=== PATIENT | male | born 1980 | race Caucasian/White ===

== ENCOUNTER 2022-04-01 12:22 | Emergency (ER) | payer BC, SELFPAY ==
[2022-04-01 12:30] VITALS: BP 139/93; PULSE 90; RESP 16; TEMP 36.3; O2SAT 95; BMI 25.1
--- NOTE | 2022-04-01 12:53 | ED.GENADULT ---
HPI - General Adult General Time Seen by Provider: 12:54 Date Seen: 04/01/22 Chief complaint: Skin/Abscess/Foreign Body Stated complaint: Abscess on back of neck Time Seen by Provider: 04/01/22 12:23 Source: patient Mode of arrival: ambulatory Limitations: no limitations History of Present Illness HPI narrative: Flip tsang 41 year white male who has got an abscess on his back of his neck. He has had this in the past, he has been on Septra over the last few days, does not seem to getting a lot better. No fevers chills or rigors. He presents to ED for treatment. Related Data Home Medications Medication Instructions Recorded Confirmed No Known Home Medications 03/27/22 03/27/22 Previous Rx's Medication Instructions Recorded sulfamethoxazole 800 1 tab PO BID 7 days #14 tabs 03/27/22 mg-trimethoprim 160 mg tablet (Bactrim DS) Allergies Allergy/AdvReac Type Severity Reaction Status Date / Time No Known Drug Allergies Allergy Verified 03/27/22 12:26 Review of Systems Status of ROS: Reports: 6 or more systems reviewed and unremarkable except as noted in History and below PFSH PFS Social History Smoking Status: Never smoker Do you use any of these nicotine containing products: None Second hand tobacco smoke exposure: No How often do you have a drink containing alcohol: never How often do you have six or more drinks on one occasion: Never AUDIT-C Alcohol total score: 0 Non-prescribed substance use: denies use service: No Exam Narrative: Exam Narrative: Objective: Patient's vital signs unremarkable He has got a small quarter-sized fluctuant reddened area the room is raised from the back of his neck consistent with a abscess no spreading cellulitic change Procedure: After sterile scrub 1% xylocaine with epinephrine used for anesthesia a cruciate incision was made with good amount of purulence expressed. A forceps was used to open the wound and there was no additional purulence noted there was some firmness around the open wound. Const: Vital Signs, click to edit/add: Vital Signs - 24 hr 04/01/22 12:30 Temperature 97.4 F L Pulse Rate [Left P ulse Oximeter] 90 Respiratory Rate 16 Blood Pressure [Le ft Upper Arm] 139/93 H Pulse Oximetry 95 Oxygen Delivery Me thod Room Air Course Vital Signs Vital signs: Initial Vital Signs Temperature 97.4 F L 04/01/22 12:30 Temperature Source Temporal Artery Scan 04/01/22 12:30 Pulse Rate 90 04/01/22 12:30 Pulse Rhythm 04/01/22 12:30 Pulse Strength 3+ Normal 04/01/22 12:30 Respiratory Rate 16 04/01/22 12:30 Blood Pressure 139/93 H 04/01/22 12:30 Blood Pressure Mean 108 04/01/22 12:30 Blood Pressure Position Sitting 04/01/22 12:30 Pulse Oximetry 95 04/01/22 12:30 Oxygen Delivery Method 04/01/22 12:30 Vital Signs Temperature 97.4 F L 04/01/22 12:30 Pulse Rate 90 04/01/22 12:30 Respiratory Rate 16 04/01/22 12:30 Blood Pressure 139/93 H 04/01/22 12:30 Pulse Oximetry 95 04/01/22 12:30 Oxygen Delivery Method 04/01/22 12:30 Temperature 97.4 F L 04/01/22 12:30 Pulse Rate 90 04/01/22 12:30 Respiratory Rate 16 04/01/22 12:30 Blood Pressure 139/93 H 04/01/22 12:30 Pulse Oximetry 95 04/01/22 12:30 Oxygen Delivery Method 04/01/22 12:30 Medical Decision Making [facility] Narrative Medical decision making narrative: Patient has a abscess on his neck that was I indeed it was spread and opened, I left some gauze stuffed in the wound and will cover with Telfa and a bandage he can remove this tomorrow, continue antibiotics and finish that up. Allow to heal by secondary tension feel free to return if problems or concerns may simply cover with a bandage after the gauze is removed tomorrow Discharge Plan Discharge Clinical Impression: Abscess Patient Disposition: Home, Self-Care Condition: Improved Additional Instructions: Keep covered for 24 hours, then he may pull out the gauze and shower and bathe normally, finish the antibiotic, return to ER problems concerns difficulty. May take a few days before the wound closes. As mention return as needed or if continues to have symptoms. Activity Detail: Keep the wound area dry for 24 hours Discharge Diet: Regular Prescriptions: No Action No Known Home Medications sulfamethoxazole-trimethoprim [Bactrim DS] 800-160 mg tablet 1 tab PO BID 7 Days Qty: 14 0RF Follow Up/Referrals: Provider,Not a Local [Referring] - Stand Alone Forms: [facility] Info Instructions
--- NOTE | 2022-04-01 13:18 | ED.NURSE ---
TDAP given. Unable to document in JUL. Lot- [id number] E-02/08/2024
== END 2022-04-01 13:21 | disposition home or self-care (01) ==
LOC: ED 13:05
PROVIDERS: Emergency Provider Family Medicine; PCP Internal Medicine
DX: L02.11 Cutaneous abscess of neck (principal)
CPT/HCPCS: 10060; 99281; 99282; 99283

== ENCOUNTER 2022-04-18 10:20 | Outpatient (CLI) | payer BC, SELFPAY ==
[2022-04-18 10:34] LABS: Albumin* 4.2 g/dL (3.3-5.0); Chloride* 107 mmol/L (96-114); Potassium* 4.6 mmol/L (3.6-5.1); Sodium* 138 mmol/L (135-149)
[2022-04-18 10:36] LABS: Cholesterol* 185 mg/dL (90-199); Creatinine* 0.7 mg/dL (0.5-1.5); Estimated Glomerular Filt Rate 120 ml/min
[2022-04-18 10:37] LABS: Alanine Aminotransferase* 20 U/L (4-50); Alkaline Phosphatase* 46 U/L (40-150); Aspartate Amino Transferase* 26 U/L (12-35); Bilirubin Total* 1.5 mg/dL (0.1-1.5); Blood Urea Nitrogen* 12 mg/dL (5-24); Calcium* 9.3 mg/dL (8.4-10.6); Carbon Dioxide* 29 mmol/L (20-32); Glucose* 89 mg/dL (60-115); Total Protein* 6.2 g/dL (6.0-8.3); Triglycerides* 86 mg/dL (40-149)
[2022-04-18 10:38] LABS: HDL Cholesterol* 60 mg/dL (>=40); LDL Cholesterol Calculated 108 mg/dL (<100)
== END 2022-04-18 10:21 | disposition home or self-care (01) ==
PROVIDERS: PCP Internal Medicine; Visit Provider Internal Medicine
DX: Z13.6 Encounter for screening for cardiovascular disorders (principal)
CPT/HCPCS: 80053; 80061

== ENCOUNTER 2022-05-03 16:15 | Outpatient (CLI) | payer BC, SELFPAY | END 2022-05-03 16:16 | disposition home or self-care (01) | LOC: NFLDREF 16:16 | PROVIDERS: PCP Internal Medicine; Visit Provider Surgery | DX: L02.93 Carbuncle, unspecified (principal) | CPT/HCPCS: 87070; 87186 ==

== ENCOUNTER 2024-05-24 15:40 | Emergency (ER) | payer BC, SELFPAY ==
--- OUTSIDE RECORDS SUMMARY | 2024-05-24 15:43 | XMS_ITS | Clinical Summary ---
[facility] Organization [facility] Address [address] [place] [address] Care Team Providers Care Supervisor Laundry Name Role Phone No Primary/Referring, Phy Primary Care Provider Unavailable Source Comments You are receiving this document as you are listed as the primary care provider,follow-up provider, or the patient has been referred to you for consultation.This is in compliance with the Medicare and[facility] E[facility] Incentive [facility],which states Providers who transition their patient to another setting of careor provider of care or refers their patient to another provider of care shouldprovide summary care record for each transition of care or referral. [place] Allergies Active Allergy Reactions Criticality Noted Date Comments Nickel Rash 02/17/2015 Other Other, see comments 02/17/2015 Hay fever Medications Medication Sig Dispensed Refills Start Date End Date Status Cetirizine HCl (ZYRTEC OR) Reported on 06/29/2016 Active mometasone (NASONEX) 50 MCG/ACT nasal solution Place 2 Sprays into both nostrils daily as needed. Reported on 06/29/2016 Active Active Problems No known active problems Family History Medical History Relation Name Comments Cataract Father Cataract Maternal Grandfather Cataract Maternal Grandmother Cataract Paternal Grandmother Relation Name Status Comments Father Maternal Grandfather Maternal Grandmother Paternal Grandmother Social History Tobacco Use Types Packs/Day Years Used Date Smoking Tobacco: Never Alcohol Use Standard Drinks/Week Comments Yes 0 (1 standard drink = 0.6 oz pur e alcohol) Sex and Gender Information Value Date Recorded Sex Assigned at Not on file Gender Identity Not on file Sexual Orientation Not on file Plan of Treatment Health Maintenance Due Date Last Done Comments Hep C Screening (Preventive Services) 1982 HIV Screening (Preventive Services) 1998 Adult Preventive Visit 2000 DTaP/Tdap/Td (1 - Tdap) 2001 HepB (1) 2001 Cholesterol 2017 COVID-19 Vaccine (1 - 2023-2 5 season) 2024 Influenza (#1) 2024 Zoster/Shingles (1 of 2) 2032 HPV Vaccine Aged Out No longer eligi ble based on patient's age to complete this topic HepA Aged Out No longer eligi ble based on patient's age to complete this topic Hib Aged Out No longer eligi ble based on patient's age to complete this topic IPV (Polio) Aged Out No longer eligi ble based on patient's age to complete this topic MCV4 Aged Out No longer eligi ble based on patient's age to complete this topic Pneumococcal Aged Out No longer eligi ble based on patient's age to complete this topic Care Teams Supervisor Laundry Relationship Specialty Start Date End Date No Primary/Referring, Phy PCP - General 01/18/15
[2024-05-24 16:09] VITALS: BP 165/114; PULSE 73; RESP 16; TEMP 36.8; O2SAT 98; BMI 25.1
--- NOTE | 2024-05-24 17:13 | ED.SKABFB ---
HPI - Skin/Abscess/Foreign Bdy General Chief complaint: Skin/Abscess/Foreign Body Stated complaint: suspected staph infection Time Seen by Provider: 05/24/24 17:03 History of Present Illness HPI narrative: This 43-year-old male comes in with tenderness and swelling in his right eyebrow region. He has had more than a couple episodes of cutaneous abscesses that needed to be drained. He comes in earlier in the course of this occurrence hoping to prevent something from progressing like it had in the past. Does not report any fevers. He is otherwise in good health. He does not have any history of resistant organism infection such as MRSA. Related Data Previous Rx's ?Medication ?Instructions ?Recorded albuterol sulfate 90 mcg/actuation 2 puff inhalation Q6H PRN 10/22/23 aerosol inhaler shortness of breath or wheezing #6.7 grams Allergies Allergy/AdvReac Type Severity Reaction Status Date / Time nickel Allergy Unknown Verified 05/24/24 16:13 hayfever Allergy Mild runny nose Uncoded 05/24/24 16:13 Review of Systems Status of ROS: Reports: 10 or more systems reviewed and unremarkable except as noted in History and below Narrative: Constitutional: No fevers, no weight gain or loss. Eyes: No discharge. No vision changes. HENT: No congestion, no sore throat, no ear pain. Cardiovascular: No chest pain, no palpitations. Respiratory: No shortness of breath, no wheezes, no cough. Gastrointestinal: No abdominal pain, no vomiting, no diarrhea. Genitourinary: No dysuria, no hematuria. Musculoskeletal: Normal range of motion. Skin: No rashes, no pruritis. Neurological: No dizziness, weakness, sensory change, speech change. Endo/Heme/Allergies: No bruising or bleeding. No polydipsia. Pysch: no suicidality, no anxiety, no insomnia. All other systems reviewed and are negative. [facility] Social History (Updated 05/03/22 @ 19:16 by Alicia Suresh MD) Narrative: The patient is not smoke. Alcohol use is occasional. He works in [employer] at [employer]. Smoking Status: Never smoker Do you use any of these nicotine containing products: None Second hand tobacco smoke exposure: No How often do you have a drink containing alcohol: never How often do you have six or more drinks on one occasion: Never AUDIT-C Alcohol total score: 0 Non-prescribed substance use: denies use service: No Exam Narrative: Exam Narrative: Constitutional: Well-developed, well-nourished, no acute distress. HEENT: Normocephalic, atraumatic. The skin underlying the right eyebrow has an area of swelling and tenderness that is about 1 cm in diameter. There is no surrounding erythema or sign of drainage. Neck: Normal range of motion. Nontender. Supple. Heart: Intact distal pulses. Lungs: No chest discomfort. No wheezes, rhonchi, or rales. Abdomen: Nontender. Back: Normal range of motion. Extremities: Normal range of motion. No injury. Skin: Intact. No rash. Warm. No erythema or pallor. Neurologic: No altered sensation. No weakness. Alert and oriented. Psychiatric: No suicidality. No anxiety or depression. No insomnia. Nursing notes and vitals signs are reviewed. Const: Vital Signs, click to edit/add: Vital Signs - 24 hr 05/24/24 16:09 Temperature 98.3 F Pulse Rate [Pulse Oximeter] 73 Respiratory Rate 16 Blood Pressure [Ri ght Upper Arm] 165/114 H Pulse Oximetry 98 Oxygen Delivery Me thod Room Air Course Vital Signs Vital signs: Initial Vital Signs Temperature 98.3 F 05/24/24 16:09 Temperature Source Temporal Artery Scan 05/24/24 16:09 Pulse Rate 73 05/24/24 16:09 Respiratory Rate 16 05/24/24 16:09 Blood Pressure 165/114 H 05/24/24 16:09 Blood Pressure Mean 131 H 05/24/24 16:09 Blood Pressure Position Sitting 05/24/24 16:09 Pulse Oximetry 98 05/24/24 16:09 Oxygen Delivery Method Room Air 05/24/24 16:09 Vital Signs Temperature 98.3 F 05/24/24 16:09 Pulse Rate 73 05/24/24 16:09 Respiratory Rate 16 05/24/24 16:09 Blood Pressure 165/114 H 05/24/24 16:09 Pulse Oximetry 98 05/24/24 16:09 Oxygen Delivery Method Room Air 05/24/24 16:09 Temperature 98.3 F 05/24/24 16:09 Pulse Rate 73 05/24/24 16:09 Respiratory Rate 16 05/24/24 16:09 Blood Pressure 165/114 H 05/24/24 16:09 Pulse Oximetry 98 05/24/24 16:09 Oxygen Delivery Method Room Air 05/24/24 16:09 MDM - Skin/Abscess/Foreign Bdy MDM Narrative Medical decision making narrative: This 43-year-old male has a history of cutaneous abscess that needed drainage. He comes in with a small area of tenderness that has occurred over the past couple days in the skin underlying his right eyebrow. There is no surrounding erythema and no sizable palpable finding to suggest a drainable abscess. I did provide the patient with prescription for Keflex even though he is not really showing sign of obvious infection at this time. He does have prior history of several occurrences of something like this progressing to be worse. He received an [employer] prescription for Keflex. He understands findings or signs and symptoms that would indicate a need for return and re-evaluation. Discharge Plan Discharge Clinical Impression: Abscess Patient Disposition: Home, Self-Care Condition: Stable Prescriptions: No Action albuterol sulfate 90 mcg/actuation HFA aerosol inhaler 2 puff inhalation Q6H PRN (Reason: shortness of breath or wheezing) Qty: 6.7 0RF Follow Up/Referrals: Martín Escamilla MD [Primary Care Provider] - Stand Alone Forms: [employer] Info Instructions
--- OUTSIDE RECORDS SUMMARY | 2024-05-24 17:22 | XMS_ITS | Clinical Summary ---
Author Organization [facility] Address [address] [place] [address] Care Team Providers Care Pig Farmer Name Role Phone No Primary/Referring, Phy Primary Care Provider Unavailable Source Comments You are receiving this document as you are listed as the primary care provider,follow-up provider, or the patient has been referred to you for consultation.This is in compliance with the Medicare and[facility],which states Providers who transition their patient to another setting of careor provider of care or refers their patient to another provider of care shouldprovide summary care record for each transition of care or referral. [address] Allergies Active Allergy Reactions Criticality Noted Date [...] age to complete this topic Care Teams Pig Farmer Relationship Specialty Start Date End Date No Primary/Referring, Phy PCP - General 01/18/15
== END 2024-05-24 17:33 | disposition home or self-care (01) ==
PROVIDERS: Emergency Provider Emergency Medicine Emergency Medical Services; PCP Internal Medicine
DX: H00.031 Abscess of right upper eyelid (principal)
CPT/HCPCS: 99283; 99284